=== PATIENT | male | born 1960 | race African-American/Black ===

== ENCOUNTER 2022-07-20 13:31 | Emergency (ER) | payer MEDICAID ==
[~2022-07-20] VITALS: Ht 167.6 cm; Wt 67.0 kg
[2022-07-20] MEDS ORDERED: IBUPROFEN 600MG TABLET PO ONE (15:45)
[2022-07-20] MEDS ORDERED: BACITRACIN ZINC OINT UDPKT TOP ONE (15:45)
[2022-07-20] MEDS ORDERED: ACETAMINOPHEN 325MG TABLET PO ONE (15:45)
[2022-07-20] MEDS ORDERED: LIDOCAINE HCL/PF 1% 10 MG/ML 5ML VIAL INFIL ONE (15:45)
[2022-07-20] MEDS ORDERED: SODIUM CHLORIDE 0.9% 1,000 ML IV ONE (15:45)
[2022-07-20] MEDS ORDERED: SULF1TAB48 MT (16:50)
[2022-07-20 17:36] VITALS: BP 147/62
== END 2022-07-20 17:37 | disposition home or self-care (01) ==
LOC: ER 13:31
DX: L03.317 Cellulitis of buttock (principal)
CPT/HCPCS: 10060; 99283; J3490; J7030; Z7610

== ENCOUNTER 2022-07-23 15:53 | Emergency (ER) | payer MEDICARE, MEDICAID ==
[~2022-07-23] VITALS: Ht 167.6 cm; Wt 74.0 kg
[~2022-07-23 15:53] MED LIST: SULF1TAB48 MT
[2022-07-23] MEDS ORDERED: LIDOCAINE HCL 1% 20ML VIAL (Pyxis) INJ INFIL ONE (20:45)
[2022-07-23] MEDS ORDERED: LIDOCAINE HCL 1% 10 MG/ML 10ML VIAL IJ SCH (21:30)
[2022-07-23] MEDS ORDERED: CLIN-194 MT (21:56)
[2022-07-23] MEDS ORDERED: TETANUS, DIPHTHERIA, PERTUSSIS VAC/PF 0.5ML (>10YR OLD) IM ONE (22:00)
[2022-07-23 22:12] VITALS: BP 112/78
== END 2022-07-23 22:14 | disposition home or self-care (01) ==
LOC: ER 15:53
DX: L02.31 Cutaneous abscess of buttock (principal)
CPT/HCPCS: 10060; 90471; 90715; 99283; J3490

== ENCOUNTER 2022-07-25 13:42 | Emergency (ER) | payer MEDICAID, OTHER ==
[~2022-07-25] VITALS: Ht 167.6 cm; Wt 75.0 kg
[~2022-07-25 13:42] MED LIST changes: +CLIN-194 MT
[2022-07-25 14:03] VITALS: BP 149/79
== END 2022-07-25 21:00 | disposition home or self-care (01) ==
LOC: ER 14:14
DX: L02.31 Cutaneous abscess of buttock (principal); Z98.890 Other specified postprocedural states
CPT/HCPCS: 99281; Z7610